=== PATIENT | male | born 1965 | race Caucasian/White ===

== ENCOUNTER 2018-06-24 07:02 | Emergency (ER) | payer BC ==
--- OUTSIDE RECORDS SUMMARY | 2018-06-24 07:03 | XMS REPORT | Clinical Summary ---
:1965 Author Organization [facility] Address [address] [place] [address] Care Team Providers Name Role Phone Rodrigue Hogue MD Primary Care Provider Allergies Active Allergy Reactions Severity Noted Date Comments Cortisone Swelling Low 05/04/2018 Steroid injections caused upper extremity effusion Iodine Swelling Low 05/04/2018 Medications Medication Sig Dispensed Refills Start Date End Date Status meloxicam (MOBIC) 7.5 Take 7.5 mg by 03/09/2018 Active mg tablet mouth daily. naproxen (NAPROSYN) 500 Take 500 mg by 0 04/13/2018 Active MG tablet mouth. pantoprazole (PROTONIX) Take 40 mg by 0 04/13/2018 Active 40 MG EC tablet mouth. zolpidem (AMBIEN) 10 mg TAKE 1 TABLET BY 5 04/13/2018 Active tablet MOUTH AT BEDTIME NEEDED FOR INSOMNIA. ZOLMitriptan (ZOMIG) 5 0 05/03/2018 Active MG tablet triamcinolone 2 sprays into 0 04/16/2018 Active (NASACORT) 55 mcg nasal each nostril. inhaler promethazine-DM Take 5 mL by 0 04/16/2018 Active (PROMETHAZINE-DM) mouth. 6.25-15 mg/5 mL syrup telmisartan-hydrochloro Take 1 tablet by 5 04/13/2018 Active thiazid (MICARDIS HCT) mouth daily. 40-12.5 mg per tablet Active Problems No known active problems Encounters Date Type Specialty Care Team Description 06/23/2018 Office Visit Orthopedic Surgery Riley Locke, Internal derangement of MD right knee (Primary Dx) 05/04/2018 Office Visit Orthopedic Surgery Marvel Khanna Numbness and tingling III, MD of right hand (Primary Dx) after 06/23/2017 Family History Medical History Relation Name Comments Cancer Father juan diego amador No Known Problems Mother Diabetes Other Sibling Relation Name Status Comments Father juan diego amador Mother Alive Other Sibling Alive Social History Tobacco Use Types Packs/Day Years Used Date Never Smoker Smokeless Tobacco: Never Used Alcohol Use Drinks/Week oz/Week Comments Yes Twice a month Sex Assigned at Date Recorded Not on file Job Start Date Occupation Industry Not on file Not on file Not on file Travel History Travel Start Travel End No recent travel history available. Last Filed Vital Signs Vital Sign Reading Time Taken Blood Pressure 123/77 06/23/2018 11:26 AM CHIEF DEPUTY Pulse 63 06/23/2018 11:26 AM CHIEF DEPUTY Temperature - - Respiratory Rate - - Oxygen Saturation - - Inhaled Oxygen Concentration - - Weight 127 kg (279 lb) 06/23/2018 11:26 AM CHIEF DEPUTY Height 172.7 cm (5' 8") 06/23/2018 11:26 AM CHIEF DEPUTY Body Mass Index 42.42 06/23/2018 11:26 AM CHIEF DEPUTY Plan of Treatment Date Type Specialty Care Team Description 06/29/2018 Office Visit [place] [address] [place] [address] Health Maintenance Due Date Last Done Comments MMR VACCINES (1 of 1 - Standard 1964 series) VARICELLA VACCINES (1 of 2 - 2-dose 1976 adolescent series) COLON CANCER SCREENING 2013 SHINGRIX VACCINE (1 of 2) 2013 INFLUENZA VACCINE 03/03/2018 HEPATITIS B VACCINES Aged Out No longer eligible based on patient's age to complete this topic IPV VACCINES Aged Out No longer eligible based on patient's age to complete this topic MENINGOCOCCAL VACCINE Aged Out No longer eligible based on patient's age to complete this topic Results Not on fileafter 06/23/2017 Insurance Payer Benefit Plan / Group Subscriber ID Type Phone Address [employer] xxxxxxxxxxxxxxx PPO Advance Directives Patient has advance care planning documents on file. For more information, please contact:Christiano Silverman[address] [place] [address]
[2018-06-24] MEDS ORDERED: KETOROLAC 30 MG/ML INJ ONE (08:32)
[2018-06-24] MEDS ORDERED: ONDANSETRON 4 MG/2 ML VIAL ONE ×2 (08:32→10:32)
[2018-06-24] MEDS ORDERED: NA CHLORIDE 0.9% 2,000 ML ONE (08:32)
[2018-06-24 08:43] LABS: Absolute Lymphocytes (CBC) 0.2 K/uL (0.7-4.9); Absolute Monocytes 0.8 K/uL (0.1-1.3); Basophils % 0.3 % (0-1.3); Eosinophils % 0.1 % (0-4.4); Hematocrit 49.2 % (39.6-49.0); Lymphocytes % 1.8 % (15.3-44.8); MCH 27.1 pg (27.0-35.0); MPV 8.8 fL (7.6-11.3); Monocytes % 6.2 % (3.3-12.3); RBC Red Blood Cell Count 6.15 M/uL (4.33-5.43)
[2018-06-24 09:02] LABS: Albumin 4.2 g/dL (3.4-5.0); Bilirubin Direct 0.2 mg/dL (0-0.2); Potassium 4.3 mmol/L (3.5-5.1); Protein, Total 7.8 g/dL (6.4-8.2)
[2018-06-24 09:57] LABS: Blood Morphology Comment NOT SEEN (NOT SEEN); Platelet Estimate ADEQ; Urine White Blood Cell Casts OK
--- NOTE | 2018-06-24 10:09 | EDPHYS ---
Physician Documentation [facility] Name: Craig Taylor Age: 52 yrs Sex: Male : 1965 Arrival Date: 06/24/2018 Time: 07:07 Bed 20 Private MD: Rodrigue Hogue S ED Physician Gina Naranjo HPI: 06/24 10:09 This 52 yrs old Male presents to ER via Ambulatory with complaints of ma2 Nausea/Vomiting/Diarrhea, Headache. 08:12 The patient presents to the emergency department with nausea, vomiting, diarrhea. ma2 Onset: The symptoms/episode began/occurred gradually, 1 day(s) ago. Possible causes: unknown. Severity of symptoms: At their worst the symptoms were moderate in the emergency department the symptoms are unchanged. The patient has experienced a previous episode. Historical: - Allergies: 08:02 Iodine; em - PMHx: 08:02 Hypertension; em - Immunization history:: Flu vaccine is not up to date. - Social history:: Smoking status: Patient/guardian denies using tobacco, Patient/guardian denies using alcohol, street drugs, The patient lives with family, with spouse. - Ebola Screening: : Patient negative for fever greater than or equal to 101.5 degrees Fahrenheit, and additional compatible Ebola Virus Disease symptoms Patient denies exposure to infectious person Patient denies travel to an Ebola-affected area in the 21 days before illness onset No symptoms or risks identified at this time. - Family history:: not pertinent, pertinent for. - Hospitalizations: : No recent hospitalization is reported. ROS: 08:12 Constitutional: Negative for fever, chills, and weight loss. ma2 08:12 Abdomen/GI: Positive for nausea, vomiting, and diarrhea, Negative for constipation, rectal bleeding, acute changes. 08:12 All other systems are negative. Exam: 08:12 Constitutional: This is a well developed, well nourished patient who is awake, alert, ma2 and in no acute distress. Chest/axilla: Normal chest wall appearance and motion. Nontender with no deformity. No lesions are appreciated. Cardiovascular: Regular rate and rhythm with a normal S1 and S2. No gallops, murmurs, or rubs. Normal PMI, no JVD. No pulse deficits. Respiratory: Lungs have equal breath sounds bilaterally, clear to auscultation and percussion. No rales, rhonchi or wheezes noted. No increased work of breathing, no retractions or nasal flaring. Skin: Warm, dry with normal turgor. Normal color with no rashes, no lesions, and no evidence of cellulitis. MS/ Extremity: Pulses equal, no cyanosis. Neurovascular intact. Full, normal range of motion. Neuro: Awake and alert, GCS 15, oriented to person, place, time, and situation. Cranial nerves II-XII grossly intact. Motor strength 5/5 in all extremities. Sensory grossly intact. Cerebellar exam normal. Normal gait. Vital Signs: 08:02 BP 111 / 71; Pulse 99; Resp 20; Pulse Ox 99% on R/A; Weight 127.01 kg; Height 5 ft. 7 em in. (170.18 cm); Pain 2/10; 09:17 BP 100 / 49; Pulse 86; Resp 18; Pulse Ox 97% on R/A; em 10:36 BP 113 / 65; Pulse 89; Resp 18; Pulse Ox 98% on R/A; Pain 7/10; em 08:02 Body Mass Index 43.85 (127.01 kg, 170.18 cm) em MDM: 07:53 Patient medically screened. ma2 08:12 Differential diagnosis: Nonspecific abd pain, gastritis, pancreatitis, viral ma2 gastroenteritis, gastroenteritis. 10:06 Data reviewed: vital signs, nurses notes, diagnostic data from outside facility. ma2 Counseling: I had a detailed discussion with the patient and/or guardian regarding: the historical points, exam findings, and any diagnostic results supporting the discharge/admit diagnosis, the presence of at least one elevated blood pressure reading (>120/80) during this emergency department visit, the need for outpatient follow up. Response to treatment: the patient's symptoms have resolved after treatment. 06/24 08:12 Order name: Basic Metabolic Panel; Complete Time: :17 ma2 06/24 08:12 Order name: CBC with Diff ma2 06/24 08:12 Order name: Creatinine for Radiology; Complete Time: :17 ma2 06/24 08:12 Order name: Hepatic Function; Complete Time: 09:17 ma2 06/24 08:12 Order name: Lipase; Complete Time: 09:17 ma2 06/24 08:49 Order name: CBC Smear Scan EDMS 06/24 08:12 Order name: IV Saline Lock; Complete Time: : ma2 06/24 08:12 Order name: Labs collected and sent; Complete Time: ma2 Administered Medications: 08:32 Drug: TORadol 30 mg Route: IVP; Site: left antecubital; aa5 10:14 Follow up: Response: No adverse reaction; Pain is decreased em 08:32 Drug: Zofran 4 mg Route: IVP; Site: left antecubital; aa5 10:14 Follow up: Response: No adverse reaction; Nausea is decreased em 08:34 Drug: NS 0.9% 2000 ml Route: IV; Rate: 1 bolus; Site: left antecubital; em 10:31 Follow up: IV Status: Completed infusion; IV Intake: 2000ml em 10:32 Drug: Zofran 4 mg Route: IVP; Site: left antecubital; em 10:38 Follow up: Response: No adverse reaction em Disposition: 06/24/18 10:08 Discharged to Home. Impression: Dehydration, Vomiting, unspecified. - Condition is Stable. - Discharge Instructions: Dehydration, Adult. - Prescriptions for Tylenol- Codeine #3 300-30 mg Oral Tablet - take 2 tablet by ORAL route every 6 hours As needed; 30 tablet. Zofran 4 mg Oral Tablet - take 1 tablet by ORAL route every 12 hours As needed; 6 tablet. - Medication Reconciliation Form, Thank You Letter, Antibiotic Education, Prescription Opioid Use form. - Follow up: Private Physician; When: Tomorrow; Reason: Continuance of care. Signatures: Dispatcher [employer] [facility] Rj Marie, CLEANING AND WASHING EQUIPMENT OPERATOR CLEANING AND WASHING EQUIPMENT OPERATOR Loretta Lara RN RN aa5 Gina Naranjo MD MD ma2 Corrections: (The following items were deleted from the chart) 10:42 10:08 06/24/2018 10:08 Discharged to Home. Impression: Dehydration; Vomiting, em unspecified. Condition is Stable. Forms are Medication Reconciliation Form, Thank You Letter, Antibiotic Education, Prescription Opioid Use. Follow up: Private Physician; When: Tomorrow; Reason: Continuance of care. ma2
--- NOTE | 2018-06-24 10:09 | ER ---
Nurse's Notes [facility] Name: Craig Taylor Age: 52 yrs Sex: Male : 1965 Arrival Date: 06/24/2018 Time: 07:07 Bed 20 Private MD: Rodrigue Hogue S Diagnosis: Dehydration;Vomiting, unspecified Presentation: 06/24 08:00 Presenting complaint: Patient states: c/o N/V/D since 2330 last night, also c/o front em headache, unknown fever. Transition of care: patient was not received from another setting of care. Onset of symptoms was June 23, 2018. Risk Assessment: Do you want to hurt yourself or someone else? Patient reports no desire to harm self or others. Initial Sepsis Screen: Does the patient meet any 2 criteria? No. Patient's initial sepsis screen is negative. Does the patient have a suspected source of infection? No. Patient's initial sepsis screen is negative. Care prior to arrival: None. 08:00 Method Of Arrival: Ambulatory em 08:35 Acuity: DAVIDSON 3 aa5 Triage Assessment: 08:02 General: Appears in no apparent distress. comfortable, Behavior is calm, cooperative. em Pain: Complains of pain in forehead. GI: Reports diarrhea, nausea, vomiting. Historical: - Allergies: 08:02 Iodine; em - PMHx: 08:02 Hypertension; em - Immunization history:: Flu vaccine is not up to date. - Social history:: Smoking status: Patient/guardian denies using tobacco, Patient/guardian denies using alcohol, street drugs, The patient lives with family, with spouse. - Ebola Screening: : Patient negative for fever greater than or equal to 101.5 degrees Fahrenheit, and additional compatible Ebola Virus Disease symptoms Patient denies exposure to infectious person Patient denies travel to an Ebola-affected area in the 21 days before illness onset No symptoms or risks identified at this time. - Family history:: not pertinent, pertinent for. - Hospitalizations: : No recent hospitalization is reported. Screenin:02 Abuse screen: Denies threats or abuse. Nutritional screening: No deficits noted. em Tuberculosis screening: No symptoms or risk factors identified. Fall Risk None identified. Assessment: 08:02 General: Appears in no apparent distress. comfortable, Behavior is calm, cooperative. em Pain: Complains of pain in abdomen and forehead Pain currently is 2 out of 10 on a pain scale. Neuro: Level of Consciousness is awake, alert, obeys commands, Oriented to person, place, time, situation, Floor Person are equal bilaterally Moves all extremities. Gait is steady, Speech is normal, Facial symmetry appears normal, Reports headache frontal area. Cardiovascular: Capillary refill < 3 seconds Patient's skin is warm and dry. Respiratory: Airway is patent Respiratory effort is even, unlabored, Respiratory pattern is regular, symmetrical. GI: Abdomen is obese, Bowel sounds present X 4 quads. Reports diarrhea, nausea, vomiting. : No signs and/or symptoms were reported regarding the genitourinary system. Derm: Skin is intact, Skin is pink, warm \T\ dry. Musculoskeletal: Range of motion: intact in all extremities. 08:02 Reassessment: I agree with assessment completed by Rj Marie LVN . aa5 09:05 Reassessment: Patient appears in no apparent distress at this time. Patient and/or em family updated on plan of care and expected duration. Pain level reassessed. Patient is alert, oriented x 3, equal unlabored respirations, skin warm/dry/pink. 10:30 Reassessment: Patient appears in no apparent distress at this time. Patient and/or em family updated on plan of care and expected duration. Pain level reassessed. Patient is alert, oriented x 3, equal unlabored respirations, skin warm/dry/pink. reports nausea, provider notified. Vital Signs: 08:02 BP 111 / 71; Pulse 99; Resp 20; Pulse Ox 99% on R/A; Weight 127.01 kg; Height 5 ft. 7 em in. (170.18 cm); Pain 2/10; 09:17 BP 100 / 49; Pulse 86; Resp 18; Pulse Ox 97% on R/A; em 10:36 BP 113 / 65; Pulse 89; Resp 18; Pulse Ox 98% on R/A; Pain 7/10; em 08:02 Body Mass Index 43.85 (127.01 kg, 170.18 cm) em ED Course: 07:07 Patient arrived in ED. mr 07:08 Rodrigue Hogue MD is Private Physician. mr 07:53 Rj Marie LVN is Primary Nurse. em 07:53 Gina Naranjo MD is Attending Physician. ma2 08:02 Arm band placed on. em 08:02 Patient has correct armband on for positive identification. Placed in gown. Bed in low em position. Call light in reach. 08:28 Initial lab(s) drawn, by me, sent to lab. Inserted saline lock: 22 gauge in left jb1 antecubital area, using aseptic technique. Blood collected. 08:35 Triage completed. aa5 10:14 No provider procedures requiring assistance completed. em 10:40 IV discontinued, intact, bleeding controlled, No redness/swelling at site. Pressure em dressing applied. Administered Medications: 08:32 Drug: TORadol 30 mg Route: IVP; Site: left antecubital; aa5 10:14 Follow up: Response: No adverse reaction; Pain is decreased em 08:32 Drug: Zofran 4 mg Route: IVP; Site: left antecubital; aa5 10:14 Follow up: Response: No adverse reaction; Nausea is decreased em 08:34 Drug: NS 0.9% 2000 ml Route: IV; Rate: 1 bolus; Site: left antecubital; em 10:31 Follow up: IV Status: Completed infusion; IV Intake: 2000ml em 10:32 Drug: Zofran 4 mg Route: IVP; Site: left antecubital; em 10:38 Follow up: Response: No adverse reaction em Intake: 10:31 IV: 2000ml; Total: 2000ml. em Outcome: 10:08 Discharge ordered by . ma2 10:40 Discharged to home ambulatory. em 10:40 Condition: good 10:40 Discharge instructions given to patient, Instructed on discharge instructions, follow up and referral plans. no drinking with medication, no driving heavy equipment, medication usage, Demonstrated understanding of instructions, follow-up care, medications, Prescriptions given X 2. 10:42 Patient left the ED. em Signatures: Otilio Heredia jb1 Whipple, Jen Marie, Rj, CELL OPERATOR CELL OPERATOR em Loretta Mayorga RN RN aa5 Gina Naranjo MD MD ma2
== END 2018-06-24 10:42 | disposition home or self-care (01) ==
LOC: ER 07:02
DX: E86.0 Dehydration (principal); I10 Essential (primary) hypertension; Z91.048 Other nonmedicinal substance allergy status
CPT/HCPCS: 36415; 80048; 80076; 83690; 85025; 96361; 96374; 96375; 99284; J2405; J7030

== ENCOUNTER 2025-03-19 06:18 | Emergency (ER) | payer BC ==
[2025-03-19] MEDS ORDERED: predniSONE 20 MG TAB ONE (06:44)
[2025-03-19] MEDS ORDERED: DIPHENHYDRAMINE 25 MG TAB/CAP ONE (06:45)
[2025-03-19] MEDS ORDERED: FAMOTIDINE 20 MG TAB ONE (06:45)
--- NOTE | 2025-03-19 07:22 | ER ---
Nurse's Notes [facility] Name: Craig Taylor Age: 59 yrs Sex: Male : 1965 Arrival Date: 03/19/2025 Time: 06:18 Bed 18 Private MD: Rodrigue Hogue S Diagnosis: Allergic urticaria Presentation: 03/19 06:41 Chief complaint: Patient states: Pt states he ate crawfish yesterday at approx 5pm and br2 woke up approx 1 hr ago with hives to face, abdomen, and back. Denies pain c/o itching. Coronavirus screen: Client denies travel out of the [place] in the last 14 days. Ebola Screen: Patient denies exposure to infectious person. Onset: The symptoms/episode began/occurred just prior to arrival. Anaphylaxis evaluation, no signs or symptoms of anaphylaxis were noted. Initial Sepsis Screen: Does the patient meet any 2 criteria? No. Patient's initial sepsis screen is negative. Does the patient have a suspected source of infection? No. Patient's initial sepsis screen is negative. Risk Assessment: Do you want to hurt yourself or someone else? Patient reports no desire to harm self or others. Onset of symptoms was March 19, 2025 at 05:30. 06:41 Method Of Arrival: Ambulatory br2 06:41 Acuity: DAVIDSON 5 br2 Triage Assessment: 06:44 General: Appears in no apparent distress. comfortable, Behavior is calm, cooperative. br2 Pain: Denies pain. Derm: Skin is red, Skin temperature is warm Rash noted that is red, hives Reports itching. Historical: - Allergies: 06:44 Iodine; br2 - PMHx: 06:44 Hypertension; Diabetes mellitus; Hypercholesterolemia; br2 - Immunization history:: Adult Immunizations up to date. - Infectious Disease History:: Denies. - Social history:: Smoking status: Patient/guardian denies using tobacco, Patient/guardian denies using alcohol, street drugs. Screenin:48 [facility] ED Fall Risk Assessment (Adult) History of falling in the last 3 months, bm8 including since admission No falls in past 3 months (0 pts) Confusion or Disorientation No (0 pts) Intoxicated or Sedated No (0 pts) Impaired Gait No (0 pts) Mobility Assist Device Used No (0 pt) Altered Elimination No (0 pt) Score/Fall Risk Level 0 - 2 = Low Risk Oriented to surroundings, Maintained a safe environment, Educated pt \T\ family on fall prevention, incl call for assistance when getting out of bed, Assessed \T\ reinforced patient's understanding of fall precautions, Hourly rounding (assess needs \T\ fall precautionary measures) done, Used ambulatory aids as needed (educated on \T\ assisted with), Used gait belt as appropriate. Abuse screen: Denies threats or abuse. Nutritional screening: No deficits noted. Tuberculosis screening: No symptoms or risk factors identified. Assessment: 06:48 General: Appears in no apparent distress. comfortable, Behavior is calm, cooperative, bm8 appropriate for age. Pain: Denies pain. Neuro: No deficits noted. Level of Consciousness is awake, alert, obeys commands, Oriented to person, place, time, situation, Appropriate for age. Cardiovascular: Denies chest pain, Capillary refill < 3 seconds in bilateral fingers Patient's skin is warm and dry. Respiratory: Airway is patent Respiratory effort is even, unlabored, Respiratory pattern is regular, symmetrical, Breath sounds are clear bilaterally. Derm: Rash noted that is red, raised, urticaria, Reports itching. Vital Signs: 06:41 BP 109 / 71; Pulse 67; Resp 18; Temp 97.6; Pulse Ox 96% ; Weight 111.13 kg; Height 5 br2 ft. 7 in. ; Pain 0/10; 06:41 Body Mass Index 38.37 (111.13 kg, 170.18 cm) br2 06:41 Pain Scale: Adult br2 [place] Coma Score: 06:48 Eye Response: spontaneous(4). Motor Response: obeys commands(6). Verbal Response: bm8 oriented(5). Total: 15. ED Course: 06:22 Patient arrived in ED. jj6 06:22 Rodrigue Hogue MD is Private Physician. jj6 06:23 Juan M Acevedo DO is Attending Physician. ms3 06:42 Heriberto Brooks, KEI is Primary Nurse. bm8 06:44 Triage completed. br2 06:44 Arm band placed on left wrist. br2 06:48 Patient has correct armband on for positive identification. Bed in low position. Call bm8 light in reach. Side rails up X 1. Adult w/ patient. Client placed on continuous cardiac and pulse oximetry monitoring. NIBP monitoring applied. Pulse ox on. NIBP on. Door closed. Noise minimized. Warm blanket given. Verbal reassurance given. Head of bed elevated. 06:48 No provider procedures requiring assistance completed. Patient did not have IV access bm8 during this emergency room visit. Patient maintains SpO2 saturation greater than 95% on room air. 07:03 Report given to KEI Otoole. 07:08 Primary Nurse role handed off by Heriberto Brooks RN 07:08 Sydnie Mancuso, RN is Primary Nurse. iw Administered Medications: 06:48 Drug: Famotidine PO 20 mg PO once Route: PO; bm8 07:40 Follow up: Response: No adverse reaction; Marked relief of symptoms iw 06:48 Drug: diphenhydrAMINE PO 50 mg PO once Route: PO; bm8 07:40 Follow up: Response: No adverse reaction; Marked relief of symptoms iw 06:48 Drug: predniSONE PO 60 mg PO once Route: PO; bm8 07:40 Follow up: Response: No adverse reaction; Marked relief of symptoms iw Medication: 06:48 VIS not applicable for this client. bm8 Outcome: 07:21 Discharge ordered by MD. ms3 07:38 Discharged to home ambulatory, with family, iw 07:38 Condition: good 07:38 Discharge instructions given to patient, family, Instructed on discharge instructions, follow up and referral plans. medication usage, Demonstrated understanding of instructions, follow-up care, medications, Prescriptions given X 1, 07:39 Patient left the ED. iw Signatures: Sydnie Mancuso RN RN Juan M Acevedo DO DO ms3 Devika Lamas jj6 Rubi Caruso RN RN Heriberto Brooks, RN RN bm8 Veronica Siegel RN RN br2
--- NOTE | 2025-03-19 07:22 | EDPHYS ---
Physician Documentation [facility] Name: Craig Taylor Age: 59 yrs Sex: Male : 1965 Arrival Date: 03/19/2025 Time: 06:18 Bed 18 Private MD: Rdorigue Hogue S ED Physician Juan M Acevedo HPI: 03/19 07:27 This 59 yrs old Male presents to ER via Ambulatory with complaints of Rash, Allergic ms3 Reaction. 07:27 59-year-old male with past medical history of hypertension, diabetes, hyperlipidemia ms3 presents to the emergency department for urticaria on his face. Patient states he ate crawfish yesterday evening and has an allergy to strep and is concerned possibility of cross-contamination. Patient denies pain at this time. Patient endorses itching. Patient states he noticed his symptoms beginning 1 hour prior to arrival and states they are becoming worse. Patient denies scratchy throat, trouble breathing.. Historical: - Allergies: 06:44 Iodine; br2 - PMHx: 06:44 Hypertension; Diabetes mellitus; Hypercholesterolemia; br2 - Immunization history:: Adult Immunizations up to date. - Infectious Disease History:: Denies. - Social history:: Smoking status: Patient/guardian denies using tobacco, Patient/guardian denies using alcohol, street drugs. ROS: 07:27 Constitutional: Negative for fever, and chills. ENT: Negative for injury, pain, and ms3 discharge, Cardiovascular: Negative for chest pain, and palpitations. Respiratory: Negative for shortness of breath, cough, wheezing, and pleuritic chest pain, Abdomen/GI: Negative for abdominal pain, nausea, vomiting, diarrhea, and constipation, 07:27 Skin: Positive for Urticaria, itching, Exam: 07:27 Constitutional: This is a well developed, well nourished patient who is awake, alert, ms3 and in no acute distress. Chest/axilla: Normal chest wall appearance and motion. Nontender with no deformity. Cardiovascular: Regular rate and rhythm with a normal S1 and S2. No gallops, murmurs, or rubs. Normal PMI, no JVD. No pulse deficits. Respiratory: Lungs have equal breath sounds bilaterally, clear to auscultation and percussion. No rales, rhonchi or wheezes noted. No increased work of breathing, no retractions or nasal flaring. Abdomen/GI: Soft, non-tender, with normal bowel sounds. No distension or tympany. No guarding or rebound. No evidence of tenderness throughout. 07:27 Skin: rash can be described as urticarial, on the Forehead and face, Vital Signs: 06:41 BP 109 / 71; Pulse 67; Resp 18; Temp 97.6; Pulse Ox 96% ; Weight 111.13 kg; Height 5 br2 ft. 7 in. ; Pain 0/10; 06:41 Body Mass Index 38.37 (111.13 kg, 170.18 cm) br2 06:41 Pain Scale: Adult br2 Tamiko Coma Score: 06:48 Eye Response: spontaneous(4). Motor Response: obeys commands(6). Verbal Response: bm8 oriented(5). Total: 15. MDM: 06:34 Medical Screening Exam initiated ms3 07:27 Differential diagnosis: allergic reaction, Idiopathic urticaria. Data reviewed: vital ms3 signs, nurses notes, and as a result, I will discharge patient. I considered the following discharge prescriptions or medication management in the emergency department Medications were administered in the Emergency Department. See MAR. Counseling: I had a detailed discussion with the patient and/or guardian regarding the historical points, exam findings, and any diagnostic results supporting the discharge/admit diagnosis, the need for outpatient follow up, to return to the emergency department if symptoms worsen or persist or if there are any questions or concerns that arise at home. Special discussion: I discussed with the patient/guardian in detail that at this point there is no indication for admission to the hospital. It is understood, however, that if the symptoms persist or worsen the patient needs to return immediately for re-evaluation. ED course: On reevaluation patient's symptoms have improved. Patient's oropharynx remains patent, tongue is not swollen, patient tolerating p.o., no cough, urticaria resolving. Patient agrees with discharge at this time. Patient given prescription for prednisone 40 mg daily. Discussed Benadryl use and Pepcid use with patient and his . Patient to follow-up his primary care physician in 2 to 3 days. Patient or stands and agrees with plan. All questions were answered. Return precautions were discussed to include shortness of breath, scratchy throat, cough, worsening symptoms, or any other concerns.. Administered Medications: 06:48 Drug: Famotidine PO 20 mg PO once Route: PO; bm8 07:40 Follow up: Response: No adverse reaction; Marked relief of symptoms iw 06:48 Drug: diphenhydrAMINE PO 50 mg PO once Route: PO; bm8 07:40 Follow up: Response: No adverse reaction; Marked relief of symptoms iw 06:48 Drug: predniSONE PO 60 mg PO once Route: PO; bm8 07:40 Follow up: Response: No adverse reaction; Marked relief of symptoms iw Disposition Summary: 03/19/25 07:21 Discharge Ordered Notes: Location: Home ms3 Condition: Stable ms3 Diagnosis - Allergic urticaria ms3 Followup: ms3 - With: Private Physician - When: 2 - 3 days - Reason: Recheck today's complaints Discharge Instructions: - Discharge Summary Sheet ms3 - Allergies, Adult ms3 - Hives ms3 Forms: - Medication Reconciliation Form ms3 - Antibiotic Education ms3 - Prescription Opioid Use ms3 - Patient Portal Instructions ms3 - Leadership Thank You Letter ms3 Prescriptions: - Prednisone 20 mg Oral Tablet - take 2 tablets ORAL route once daily for 5 days; 10 tablet; Refills: 0, Product ms3 Selection Permitted Signatures: Juan M Acevedo DO DO ms3 Heriberto Brooks RN RN bm8 Veronica Siegel RN RN br2 Sydnie Mancuso RN iw
[2025-03-19 14:42] VITALS: BP 109/71; TEMP 97.6; O2SAT 96
== END 2025-03-19 07:39 | disposition home or self-care (01) ==
LOC: ER 06:18
DX: L50.0 Allergic urticaria (principal)
CPT/HCPCS: 99284; J7512